=== PATIENT | male | born 1985 | race Caucasian/White ===

== ENCOUNTER 2017-08-07 14:53 | Emergency (ER) | payer OTHER ==
[~2017-08-07] VITALS: Ht 180.3 cm; Wt 93.2 kg
[2017-08-07 15:04] VITALS: Ht 180.3 cm; Wt 93.2 kg
--- NOTE | 2017-08-07 15:29 | ERD ---
ER Documentation Chief Complaint Chief Complaint R90, RT FOOT PAIN POSSIBLE GOUT, DEVELOP INCREASE HEART RATE. HPI 31-year-old man brought in for palpitations, he also complains of left knee pain but that has been an ongoing issue today he developed sudden onset palpitations, has had similar episodes in the past and has not undergone ablative therapy. He denies fevers or chills, no chest pain or shortness of breath, no vomiting or diarrhea. Patient denies redness or swelling to the knee. ROS All systems reviewed and are negative except as per history of present illness. Medications Home Meds Reported Medications Hydrocodone Bit-Acetaminophen (Hydrocodone Bit-APAP) 5-325MG Tablet, 1 TAB PO Q6H Y for PAIN, TAB 08/07/17 Colchicine (Mitigare) 0.6 Mg Capsule, 1.2 MG PO, CAP AT FIRST SIGN OF GOUT FLAIR 08/07/17 Prednisone* (Prednisone*) 20 Mg Tab, 20 MG PO BID, TAB FOR 3 DAYS 08/07/17 Discontinued Reported Medications Oxycodone HCl/Acetaminophen (Endocet 5-325 Tablet) 1 Each Tablet, 1 EACH PO QID , TAB 08/07/17 Allergies Allergies: Coded Allergies: No Known Allergy (Unverified , 08/07/17) PMhx/Soc Gout, possible SVT History of Surgery: No Anesthesia Reaction: No Hx Neurological Disorder: Yes (migraines ) Hx Respiratory Disorders: No Hx Cardiac Disorders: No Hx Psychiatric Problems: No Hx Miscellaneous Medical Probl: Yes (Gout right toe) Hx Alcohol Use: No Hx Substance Use: No Hx Tobacco Use: No FmHx Family History: No diabetes Physical Exam Vitals Vital Signs Date Time Temp Pulse Resp B/P Pulse Ox O2 Delivery O2 Flow Rate FiO2 08/07/17 17:51 98.1 79 18 118/91 97 Room Air 08/07/17 15:04 98.4 79 18 134/84 99 Physical Exam GENERAL: Well-developed, well-nourished, anxious HEENT: Moist mucous membranes, pink conjunctiva, no cervical spine tenderness or step-off deformities, no goiter, no jaundice or icterus, extraocular movements intact without pain. No submandibular induration, and no pharyngeal erythema NEURO: Alert and oriented 3, cranial nerves II through XII intact bilaterally, pupils equal round reactive to light, no focal deficits or facial asymmetry, sensation intact distally Strength 5/5 in upper and lower extremities bilaterally CARDIAC: Regular rate and rhythm, no murmurs rubs or gallops LUNGS: Clear bilaterally no wheezing crackles or stridor ABDOMEN: Soft nontender, no guarding, no rigidity, no rebound, no psoas sign no obturator sign. Normoactive bowel sounds SKIN: Warm and dry to touch, no abrasions, contusions, or hematomas, no lacerations, no ecchymosis, no target lesions, and without ulcers EXTREMITIES: No clubbing cyanosis or edema, calves are bilaterally symmetrical, no Homans sign, no popliteal cord sign. Distal pulses equal and bilateral PSYCH: Anxious Result Diagram: 08/07/17 1556 08/07/17 1645 Results 24 hrs Laboratory Tests Test 08/07/17 15:56 08/07/17 16:45 White Blood Count 7.810^3/ul Red Blood Count 4.6110^6/ul Hemoglobin 15.6g/dl Hematocrit 42.5% Mean Corpuscular Volume 92.2fl Mean Corpuscular Hemoglobin 33.8pg Mean Corpuscular Hemoglobin Concent 36.7g/dl Red Cell Distribution Width 12.0% Platelet Count 07646^3/UL Mean Platelet Volume 11.1fl Neutrophils % 78.5% Lymphocytes % 14.0% Monocytes % 6.7% Eosinophils % 0.1% Basophils % 0.3% Nucleated Red Blood Cells % 0.0/100WBC Neutrophils # 6.110^3/ul Lymphocytes # 1.110^3/ul Monocytes # 0.510^3/ul Eosinophils # 0.010^3/ul Basophils # 0.010^3/ul Nucleated Red Blood Cells # 0.010^3/ul Sodium Level 137mmol/L Potassium Level 3.0mmol/L Chloride Level 102mmol/L Carbon Dioxide Level 21mmol/L Anion Gap 17 Blood Urea Nitrogen 20mg/dl Creatinine 0.90mg/dl Glucose Level 76mg/dl Calcium Level 8.9mg/dl Total Bilirubin 0.9mg/dl Direct Bilirubin 0.00mg/dl Indirect Bilirubin 0.9mg/dl Aspartate Amino Transf (AST/SGOT) 119IU/L Alanine Aminotransferase (ALT/SGPT) 104IU/L Alkaline Phosphatase 55IU/L Troponin I < 0.012ng/ml Total Protein 7.3g/dl Albumin 4.5g/dl Globulin 2.80g/dl Albumin/Globulin Ratio 1.60 Lipase 175U/L Current Medications Medications (Trade) Dose Ordered Sig/Lamonte Route PRN Reason Start Time Stop Time Status Last Admin Dose Admin Sodium Chloride (NS) 1,000 ml @ 1,000 mls/hr Q1H STAT IV 08/07/17 15:38 08/07/17 16:37 DC 08/07/17 16:06 Ketorolac Tromethamine (Toradol) 15 mg ONCE STAT IV 08/07/17 15:38 08/07/17 15:40 DC 08/07/17 16:06 Lorazepam 0.5 mg 0.5 mg ONCE ONCE IV 08/07/17 16:00 08/07/17 16:01 DC 08/07/17 16:06 Magnesium Sulfate (Magnesium Sulfate 2 Gm/50 ml) 50 ml @ 25 mls/hr ONCE ONCE IVPB 08/07/17 16:00 08/07/17 17:52 DC 08/07/17 16:06 Procedures/MDM The line was established patient was placed on personnel monitor rhythm strip revealed a sinus rhythm at about 80 bpm with upright P and T waves. Patient was afebrile. EMS EKG reveals a narrow complex tachycardia at 170 bpm, normal axis, narrow QRS complex, no concerning ST elevations or depressions noted. Insert 1 L normal saline intravenously, lorazepam 0.5 mg IV 1, Toradol 15 mg IV , magnesium 2 g IV 1 EKG performed, read by me: 77 bpm, normal sinus rhythm, normal axis, no acute ST segment changes, narrow QRS complex, with good R-wave progression in precordial leads. One AP view of the chest performed, read by me reveals no acute infiltrates, normal mediastinum, sharp costophrenic and cardiac borders, no air under the diaphragm. Otherwise unremarkable chest x-ray. CBC and electrolytes were unremarkable, liver function tests normal, troponin negative. Differential diagnoses considered, included but not limited to acute coronary syndrome, pulmonary embolism, aortic dissection, abdominal aortic aneurysm, sepsis, stroke, meningitis, encephalitis, pneumonia, appendicitis, cholecystitis , bowel obstruction, pyelonephritis, nephrolithiasis, cystitis, as well as metabolic, hematologic, and electrolyte abnormalities. As well as abscess, cellulitis, fractures, and dislocations. Patient feels much better at this time, and vital signs are normal, symptoms have improved. I did give strict instructions to return to the ED if symptoms continue or worsen, patient will otherwise follow-up with primary care physician. Patient understood instructions and agreed to plan. Disclaimer: Inadvertent spelling and grammatical errors are likely due to EHR/ dictation software use and do not reflect on the overall quality of patient care. Also, please note that the electronic time recorded on this note does not necessarily reflect the actual time of the patient encounter. Departure Diagnosis: Primary Impression: SVT (supraventricular tachycardia) Additional Impressions: Palpitations Knee sprain Encounter type: initial encounter Involved ligament of knee: unspecified ligament Laterality: left Qualified Code: S83.92XA - Sprain of left knee, unspecified ligament, initial encounter Condition: CAT Freire MD Aug 07, 2017 15:29
[2017-08-07] MEDS ORDERED: SOD CHLORIDE 0.9% 1,000 ML IV STA (15:38)
[2017-08-07] MEDS ORDERED: KETOROLAC 15 MG INJ IV STA (15:38)
[2017-08-07] MEDS ORDERED: MAGNESIUM SULFATE 2 GM/50 ML 50 ML IVPB ONE (16:00)
[2017-08-07] MEDS ORDERED: LORAZEPAM 2 MG INJ IV ONE (16:00)
--- NOTE | 2017-08-07 16:00 | RADRPT ---
PROCEDURE: XR Chest. CLINICAL INDICATION: Abdominal pain TECHNIQUE: Single frontal view of the chest was obtained COMPARISON: None FINDINGS: The heart and mediastinum are within normal limits. There is mild elevation of the right diaphragm. The lungs are clear. There is no pleural effusion or pneumothorax. RPTAT: AA IMPRESSION: No acute disease. .Radu Grace MD, MD Date Time Electronically viewed and signed by .Radu Grace MD, on 08/07/2017 15:59 .S/
[2017-08-07 16:09] LABS: BASOPHILS % 0.3 % (0.0-2.0); EOSINOPHILS % 0.1 % (0.0-7.0); HEMATOCRIT 42.5 % (42.0-52.0); HEMOGLOBIN 15.6 g/dl (14.0-18.0); LYMPHOCYTES # 1.1 10^3/ul (0.8-2.9); MEAN CORPUSCULAR HEMOGLOBIN 33.8 pg (29.0-33.0); MEAN CORPUSCULAR HGB CONC 36.7 g/dl (32.0-37.0); MEAN CORPUSCULAR VOLUME 92.2 fl (82.0-101.0); MEAN PLATELET VOLUME 11.1 fl (7.4-10.4); MONOCYTE # 0.5 10^3/ul (0.3-0.9); MONOCYTES % 6.7 % (0.0-11.0); NEUTROPHIL # 6.1 10^3/ul (1.6-7.5); NEUTROPHILS % 78.5 % (39.0-77.0); PLATELET COUNT 186 10^3/UL (140-415); RED BLOOD COUNT 4.61 10^6/ul (4.70-6.10); WHITE BLOOD COUNT 7.8 10^3/ul (4.8-10.8)
[2017-08-07] MEDS ORDERED: [UNRECOGNIZED DRUG - CODE] PO (16:26)
[2017-08-07] MEDS ORDERED: PRED20TA PO (16:27)
[2017-08-07] MEDS ORDERED: COLC0.6C3 PO (16:30)
[2017-08-07] MEDS ORDERED: HYDR-3498 PO (16:32)
[2017-08-07 17:18] LABS: ALANINE AMINOTRANSFERASE 104 IU/L (13-69); ALBUMIN 4.5 g/dl (3.3-4.9); ALKALINE PHOSPHATASE 55 IU/L (42-121); ANION GAP 17 (8-16); ASPARTATE AMINO TRANSFERASE 119 IU/L (15-46); BILIRUBIN,INDIRECT 0.9 mg/dl (0-1.1); BILIRUBIN,TOTAL 0.9 mg/dl (0.2-1.3); BLOOD UREA NITROGEN 20 mg/dl (7-20); CALCIUM 8.9 mg/dl (8.4-10.2); CARBON DIOXIDE 21 mmol/L (21-31); CHLORIDE 102 mmol/L (97-110); GLUCOSE 76 mg/dl (70-220); SODIUM 137 mmol/L (135-144); TOTAL PROTEIN 7.3 g/dl (6.1-8.1)
[2017-08-07 17:30] LABS: TROPONIN-I < 0.012 ng/ml (0.00-0.12)
[2017-08-07 17:51] VITALS: BP 118/91; PULSE 79; RESP 18; TEMP 98.1
== END 2017-08-07 17:52 | disposition home or self-care (01) ==
LOC: E/R 14:53
DX: I47.1 Supraventricular tachycardia (principal); S83.92XA Sprain of unspecified site of left knee, initial encounter; X58.XXXA Exposure to other specified factors, initial encounter; Y92.9 Unspecified place or not applicable
CPT/HCPCS: 36415; 71010; 80053; 83690; 84484; 85025; 96374; 96375; J1885; J2060; J3475; J7030; Z7502

== ENCOUNTER 2017-10-11 15:11 | Emergency (ER) | payer OTHER ==
[~2017-10-11] VITALS: Ht 180.3 cm; Wt 93.2 kg
[~2017-10-11 15:11] MED LIST: COLC0.6C3 PO; HYDR-3498 PO; PRED20TA PO
[2017-10-11 15:16] VITALS: Ht 180.3 cm; Wt 93.2 kg
[2017-10-11] MEDS ORDERED: SOD CHLORIDE 0.9% 1,000 ML IV STA ×2 (15:24→18:22)
[2017-10-11] MEDS ORDERED: ONDANSETRON 4 MG INJ IV STA (15:24)
[2017-10-11 17:36] LABS: BASOPHILS % 0.8 % (0.0-2.0); HEMATOCRIT 43.1 % (42.0-52.0); HEMOGLOBIN 15.6 g/dl (14.0-18.0); LYMPHOCYTES # 1.4 10^3/ul (0.8-2.9); LYMPHOCYTES % 35.3 % (15.0-51.0); MEAN CORPUSCULAR HEMOGLOBIN 34.1 pg (29.0-33.0); MEAN CORPUSCULAR HGB CONC 36.2 g/dl (32.0-37.0); MEAN CORPUSCULAR VOLUME 94.3 fl (82.0-101.0); MEAN PLATELET VOLUME 9.4 fl (7.4-10.4); MONOCYTE # 0.3 10^3/ul (0.3-0.9); MONOCYTES % 7.6 % (0.0-11.0); NEUTROPHIL # 2.1 10^3/ul (1.6-7.5); PLATELET COUNT 179 10^3/UL (140-415); RED BLOOD COUNT 4.57 10^6/ul (4.70-6.10); RED CELL DISTRIBUTION WIDTH 12.7 % (11.5-14.5); WHITE BLOOD COUNT 3.8 10^3/ul (4.8-10.8)
[2017-10-11 18:04] LABS: ALANINE AMINOTRANSFERASE 80 IU/L (13-69); ALBUMIN 4.6 g/dl (3.3-4.9); ALBUMIN/GLOBULIN RATIO 1.31; ALKALINE PHOSPHATASE 92 IU/L (42-121); ANION GAP 21 (8-16); ASPARTATE AMINO TRANSFERASE 83 IU/L (15-46); BILIRUBIN,INDIRECT 0.3 mg/dl (0-1.1); BILIRUBIN,TOTAL 0.3 mg/dl (0.2-1.3); BLOOD UREA NITROGEN 9 mg/dl (7-20); CALCIUM 8.8 mg/dl (8.4-10.2); CARBON DIOXIDE 28 mmol/L (21-31); CHLORIDE 103 mmol/L (97-110); CREATININE 0.85 mg/dl (0.61-1.24); GLUCOSE 94 mg/dl (70-220); SODIUM 148 mmol/L (135-144); TOTAL PROTEIN 8.1 g/dl (6.1-8.1)
[2017-10-11 18:14] LABS: TROPONIN-I < 0.012 ng/ml (0.00-0.12)
[2017-10-11] MEDS ORDERED: LORA1TAB PO (18:24)
[2017-10-11] MEDS ORDERED: ONDA4TAB14 PO (18:24)
--- NOTE | 2017-10-11 18:27 | ERD ---
ER Documentation Chief Complaint Chief Complaint "drank 1 bottle of vodka last night" still feels under influence HPI This a 32-year-old male who admits to being an alcoholic complains that he is here for being intoxicated and taking Benadryl. The patient's mom called EMS because the patient was hard to wake up this afternoon. The patient says he takes Benadryl every night usually one. However, he states he took 3 Benadryl last night after drinking. 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 He says he has no pain did not fall denies any headache neck pain chest pain back pain recent illness. No withdrawal symptoms. He says just a little bit sleepy because of the Benadryl and the alcohol. No vomiting diarrhea or abdominal pain ROS All systems reviewed and are negative except as per history of present illness. Medications Home Meds Active Scripts Ondansetron (Ondansetron Odt) 4 Mg Tab.rapdis, 4 MG PO Q6H Y for NAUSEA AND/OR VOMITING, #10 TAB Prov:PARTH TOPETE DO 10/11/17 Lorazepam* (Lorazepam*) 1 Mg Tablet, 1 MG PO Q8 for anxi, #10 TAB Prov:PARTH TOPETE DO 10/11/17 Reported Medications Hydrocodone Bit-Acetaminophen (Hydrocodone Bit-APAP) 5-325MG Tablet, 1 TAB PO Q6H Y for PAIN, TAB 08/07/17 Colchicine (Mitigare) 0.6 Mg Capsule, 1.2 MG PO, CAP AT FIRST SIGN OF GOUT FLAIR 08/07/17 Prednisone* (Prednisone*) 20 Mg Tab, 20 MG PO BID, TAB FOR 3 DAYS 08/07/17 Allergies Allergies: Coded Allergies: No Known Allergy (Unverified , 08/07/17) PMhx/Soc History of Surgery: No Anesthesia Reaction: No Hx Neurological Disorder: Yes (migraines ) Hx Respiratory Disorders: Yes (asthma) Hx Cardiac Disorders: No Hx Psychiatric Problems: No Hx Miscellaneous Medical Probl: Yes (Gout right toe) Hx Alcohol Use: Yes ("750mL vodka last night") Hx Substance Use: No Hx Tobacco Use: No Smoking Status: Never smoker FmHx Family History: No coronary disease Physical Exam Vitals Vital Signs Date Time Temp Pulse Resp B/P Pulse Ox O2 Delivery O2 Flow Rate FiO2 10/11/17 15:16 98.8 105 16 140/89 99 Physical Exam Const: Well-developed, well-nourished Head: Atraumatic, normocephalic Eyes: Normal Conjunctiva, PERRLA, EOMI, normal sclera, no nystagmus ENT: Normal External Ears, Nose and Mouth, moist mucus membranes. Neck: Full range of motion. No meningismus, no lymphadenopathy. Resp: Clear to auscultation bilaterally, no wheezing, rhonchi, rales Cardio: Regular rate and rhythm, no murmurs, S1 S2 present Abd: Soft, non tender x 4, non distended. Normal bowel sounds, no guarding or rebound, no pulsitile abdominal masses or bruits Skin: No petechiae or rashes, no ecchymosis , no maculopapular rash Back: No midline or flank tenderness Ext: No cyanosis, or edema, FROM x 4, normal inspection, neurovascularly intact x 4 Neur: Awake and alert, STR 5/5 x 4, sensation intact x 4, no focal findings, cerebellum intact Psych: Normal Mood and Affect Result Diagram: 10/11/17 1645 10/11/17 1645 Results 24 hrs Laboratory Tests Test 10/11/17 16:45 White Blood Count 3.810^3/ul Red Blood Count 4.5710^6/ul Hemoglobin 15.6g/dl Hematocrit 43.1% Mean Corpuscular Volume 94.3fl Mean Corpuscular Hemoglobin 34.1pg Mean Corpuscular Hemoglobin Concent 36.2g/dl Red Cell Distribution Width 12.7% Platelet Count 93050^3/UL Mean Platelet Volume 9.4fl Neutrophils % 55.0% Lymphocytes % 35.3% Monocytes % 7.6% Eosinophils % 1.0% Basophils % 0.8% Nucleated Red Blood Cells % 0.0/100WBC Neutrophils # 2.110^3/ul Lymphocytes # 1.410^3/ul Monocytes # 0.310^3/ul Eosinophils # 0.010^3/ul Basophils # 0.010^3/ul Nucleated Red Blood Cells # 0.010^3/ul Sodium Level 148mmol/L Potassium Level 4.0mmol/L Chloride Level 103mmol/L Carbon Dioxide Level 28mmol/L Anion Gap 21 Blood Urea Nitrogen 9mg/dl Creatinine 0.85mg/dl Glucose Level 94mg/dl Calcium Level 8.8mg/dl Total Bilirubin 0.3mg/dl Direct Bilirubin 0.00mg/dl Indirect Bilirubin 0.3mg/dl Aspartate Amino Transf (AST/SGOT) 83IU/L Alanine Aminotransferase (ALT/SGPT) 80IU/L Alkaline Phosphatase 92IU/L Troponin I < 0.012ng/ml Total Protein 8.1g/dl Albumin 4.6g/dl Globulin 3.50g/dl Albumin/Globulin Ratio 1.31 Current Medications Medications (Trade) Dose Ordered Sig/Lamonte Route PRN Reason Start Time Stop Time Status Last Admin Dose Admin Sodium Chloride (NS) 1,000 ml @ 1,000 mls/hr Q1H STAT IV 10/11/17 15:24 10/11/17 16:23 DC 10/11/17 16:51 Ondansetron HCl 4 mg 4 mg ONCE STAT IV 10/11/17 15:24 10/11/17 15:25 DC 10/11/17 16:52 Sodium Chloride (NS) 1,000 ml @ 1,000 mls/hr Q1H STAT IV 10/11/17 18:22 10/11/17 19:21 Lorazepam 1 mg 1 mg ONCE ONCE PO 10/11/17 18:30 10/11/17 18:31 Sodium Chloride (NS) 1,000 ml @ 1,000 mls/hr Q1H ONCE IV 10/11/17 18:30 10/11/17 19:29 UNV Lorazepam (Ativan) 1 mg ONCE ONCE IV 10/11/17 18:30 10/11/17 18:31 UNV Procedures/MDM Patient received 2 L normal saline with some Ativan. The patient is awake and alert coherent after several hours of observation. We will discharge home in stable condition Departure Diagnosis: Primary Impression: Alcoholic intoxication Complication of substance-induced condition: uncomplicated Qualified Code: F10.920 - Alcoholic intoxication without complication Condition: Stable Patient Instructions: Alcohol Intoxication Referrals: SHELIA YOUNG (PCP) PARTH TOPETE DO Oct 11, 2017 18:27
[2017-10-11] MEDS ORDERED: LORAZEPAM 1 MG TAB PO ONE (18:30)
[2017-10-11] MEDS ORDERED: SOD CHLORIDE 0.9% 1,000 ML IV ONE (18:30)
[2017-10-11] MEDS ORDERED: LORAZEPAM 2 MG INJ IV ONE (18:30)
[2017-10-11] MEDS ORDERED: LORAZEPAM 2 MG INJ ONE (18:35)
[2017-10-11 20:02] VITALS: BP 115/79; PULSE 99; RESP 16; TEMP 98.6
== END 2017-10-11 20:04 | disposition home or self-care (01) ==
LOC: E/R 15:11
DX: F10.920 Alcohol use, unspecified with intoxication, uncomplicated (principal); J45.909 Unspecified asthma, uncomplicated
CPT/HCPCS: 80053; 84484; 85025; J2060; J2405; J7030; 36415; 96374; 96375

== ENCOUNTER 2017-10-13 15:36 | Emergency (ER) | payer OTHER ==
[~2017-10-13] VITALS: Ht 180.3 cm; Wt 99.1 kg
[~2017-10-13 15:36] MED LIST changes: +LORA1TAB PO; +ONDA4TAB14 PO
[2017-10-13 15:46] VITALS: Ht 180.3 cm; Wt 99.1 kg
[2017-10-13] MEDS ORDERED: FLUMAZENIL 0.5 MG INJ IV ONE (16:30)
--- NOTE | 2017-10-13 17:27 | ERD ---
ER Documentation Chief Complaint Chief Complaint PT BIB [employer] FOR PSYCH EVAL, PT DENIES SI AND HI HPI This is a 32-year-old male whom I saw 2 days ago for the same issue. The patient is an alcoholic and says he drank again last night and took Benadryl and Ativan. Patient was groggy and was sent in here because of the neighbors report that he was kicking in a door. The patient states that he was with his mother and they could not get into the house so the mother told him to kick the door in which he did. Says he is not abusing any drugs. He says he is sleepy because of Ativan and Benadryl and alcohol but has no fall or trauma has no physical complaints at all. He is not suicidal or homicidal. ROS All systems reviewed and are negative except as per history of present illness. Medications Home Meds Active Scripts Ondansetron (Ondansetron Odt) 4 Mg Tab.rapdis, 4 MG PO Q6H Y for NAUSEA AND/OR VOMITING, #10 TAB Prov:PARTH TOPETE DO 10/11/17 Lorazepam* (Lorazepam*) 1 Mg Tablet, 1 MG PO Q8 for anxi, #10 TAB Prov:PARTH TOPETE DO 10/11/17 Reported Medications Hydrocodone Bit-Acetaminophen (Hydrocodone Bit-APAP) 5-325MG Tablet, 1 TAB PO Q6H Y for PAIN, TAB 08/07/17 Colchicine (Mitigare) 0.6 Mg Capsule, 1.2 MG PO, CAP AT FIRST SIGN OF GOUT FLAIR 08/07/17 Prednisone* (Prednisone*) 20 Mg Tab, 20 MG PO BID, TAB FOR 3 DAYS 08/07/17 Allergies Allergies: Coded Allergies: No Known Allergy (Unverified , 08/07/17) PMhx/Soc History of Surgery: No Anesthesia Reaction: No Hx Neurological Disorder: Yes (migraines ) Hx Respiratory Disorders: Yes (asthma) Hx Cardiac Disorders: No Hx Psychiatric Problems: No Hx Miscellaneous Medical Probl: Yes (Gout right toe) Hx Alcohol Use: Yes Hx Substance Use: Yes Hx Tobacco Use: Yes Smoking Status: Current every day smoker FmHx Family History: No coronary disease Physical Exam Vitals Vital Signs Date Time Temp Pulse Resp B/P Pulse Ox O2 Delivery O2 Flow Rate FiO2 12/25/17 15:46 98.6 103 17 140/80 94 Physical Exam Const: Well-developed, well-nourished Head: Atraumatic, normocephalic Eyes: Normal Conjunctiva, PERRLA, EOMI, normal sclera, no nystagmus ENT: Normal External Ears, Nose and Mouth, moist mucus membranes. Neck: Full range of motion. No meningismus, no lymphadenopathy. Resp: Clear to auscultation bilaterally, no wheezing, rhonchi, rales Cardio: Regular rate and rhythm, no murmurs, S1 S2 present Abd: Soft, non tender x 4, non distended. Normal bowel sounds, no guarding or rebound, no pulsitile abdominal masses or bruits Skin: No petechiae or rashes, no ecchymosis , no maculopapular rash Back: No midline or flank tenderness Ext: No cyanosis, or edema, FROM x 4, normal inspection, neurovascularly intact x 4 Neur: Awake and alert, STR 5/5 x 4, sensation intact x 4, no focal findings, cerebellum intact Psych: Normal Mood and Affect, not suicidal or homicidal Results 24 hrs Current Medications Medications (Trade) Dose Ordered Sig/Lamonte Route PRN Reason Start Time Stop Time Status Last Admin Dose Admin Flumazenil (Romazicon) 0.2 mg ONCE ONCE IV 10/13/17 16:30 10/13/17 16:31 DC Procedures/MDM Patient was [place] here and has no complaints he is ambulatory in the ER without any difficulty ambulating he is awake alert oriented is very cooperative and calm. We will discharge home Departure Diagnosis: Primary Impression: Substance abuse Additional Impression: Alcohol abuse Condition: Stable Patient Instructions: Alcohol Abuse PARTH TOPETE DO Oct 13, 2017 17:27
[2017-10-13 17:35] VITALS: BP 117/69; PULSE 77; RESP 18; TEMP 98.5
== END 2017-10-13 17:36 | disposition home or self-care (01) ==
LOC: E/R 15:36
DX: F10.10 Alcohol abuse, uncomplicated (principal); J45.909 Unspecified asthma, uncomplicated; F17.210 Nicotine dependence, cigarettes, uncomplicated; F55.8 Abuse of other non-psychoactive substances; R40.2142 Coma scale, eyes open, spontaneous, at arrival to emergency department; R40.2252 Coma scale, best verbal response, oriented, at arrival to emergency department; R40.2362 Coma scale, best motor response, obeys commands, at arrival to emergency department
CPT/HCPCS: 99282